=== PATIENT | male | born 1970 | race African-American/Black ===

== ENCOUNTER 2024-02-19 18:37 | Emergency (ER) | payer OTHER ==
[~2024-02-19] VITALS: Ht 175.3 cm; Wt 74.0 kg
[2024-02-19 18:48] VITALS: BP 147/76; PULSE 112; RESP 12; TEMP 98; O2SAT 99
== END 2024-02-19 20:06 ==
LOC: ER 18:37
DX: R06.02 Shortness of breath (principal); F19.90 Other psychoactive substance use, unspecified, uncomplicated
CPT/HCPCS: 99283